=== PATIENT | female | born 1950 | race Caucasian/White ===

== ENCOUNTER → 2021-11-09 04:03 | Outpatient (CLI) | payer MEDICARE, SELFPAY ==
[2021-11-09 06:24] LABS: Microscopic, Urine URINE MICROSCOPIC (MICROSCOPIC)
[2021-11-09 06:43] LABS: Appearance,Urine CLOUDY (Clear); Bilirubin,Urine Negative (Negative); Blood, Urine 1+ (Negative); Color,Urine YELLOW (Yellow); Glucose,Urine (UA) Negative (Negative); Ketones,Urine Negative (Negative); Leukocyte Esterase,Urine 3+ (Negative); Nitrate,Urine Negative (Negative); PH,Urine 6.5 (5.0-8.5); Protein,Urine Negative (Negative); Specific Gravity, Urine <= 1.005 (1.005-1.030); Urobilinogen,Urine 0.2 EU/dl (0.2)
[2021-11-09 06:49] LABS: Creatinine,Urine Random 27 mg/dL (Not Estab.)
[2021-11-09 07:08] LABS: WBC,Urine TNTC #/hpf (0-3)
[2021-11-09 07:09] LABS: Bacteria,Urine 4+ /lpf
== END ==
PROVIDERS: PCP Internal Medicine Adolescent Medicine; Visit Provider Internal Medicine Adolescent Medicine
DX: N39.0 Urinary tract infection, site not specified (principal); B96.29 Other Escherichia coli [E. coli] as the cause of diseases classified elsewhere
CPT/HCPCS: 81001; 82570; 84155; 87086; 87088; 87186

== ENCOUNTER → 2021-11-15 10:15 | Outpatient (POV) | payer MEDICARE, SELFPAY | PROVIDERS: Visit Provider Dermatology | DX: Z00.00 Encounter for general adult medical examination without abnormal findings (principal) ==

== ENCOUNTER → 2021-11-15 11:40 | Outpatient (CLI) | payer MEDICARE, SELFPAY ==
--- NOTE | 2021-11-15 11:47 | XR_ITS ---
FINAL REPORT TECHNIQUE: Bone densitometry calculations of the lumbar spine and right hip and left forearm were obtained. CLINICAL HISTORY: post menopausal, h/o lt hip fx. i did lt forearm in place of hip FINDINGS: DEXA BONE DENSITY AXIAL SKELETON Using L1-4, the bone mineral density of the spine is 0.906 g/cm2, corresponding to T-score of -1.3. Using the right hip, the bone mineral density of the femoral neck is 0.490 g/cm2, corresponding to a T-score of -3.2. Using the left forearm, the bone mineral density of the distal 1/3 is 0.465 g/cm2, corresponding to a T-score of -3.8. NOTE: T-score: Standard deviation compared with peak bone mass of young adult mean. *Following the recommendations of the International Society of Bone Densitometry, classification of hip BMD is based on the lower of two T-scores; total hip or femoral neck. IMPRESSION: Osteoporosis: Lowest T-score is at or below -2.5. This patient's T-score meets the World Health Organization criteria for osteoporosis. Reviewed, Interpreted and Dictated by Bryant Titus III, MD Transcribed by Ashanti Nesbitt Authenticated and [facility]
== END ==
PROVIDERS: PCP Internal Medicine Adolescent Medicine; Visit Provider Internal Medicine
DX: M81.0 Age-related osteoporosis without current pathological fracture (principal)
CPT/HCPCS: 77080

== ENCOUNTER → 2021-12-16 05:36 | Outpatient (CLI) | payer MEDICARE, SELFPAY ==
[2021-12-16 05:51] LABS: Microscopic, Urine URINE MICROSCOPIC (MICROSCOPIC)
[2021-12-16 05:54] LABS: Bilirubin,Urine Negative (Negative); Blood, Urine 1+ (Negative); Color,Urine YELLOW (Yellow); Glucose,Urine (UA) Negative (Negative); Ketones,Urine Negative (Negative); Leukocyte Esterase,Urine 2+ (Negative); Nitrate,Urine POSITIVE (Negative); Protein,Urine Negative (Negative); Specific Gravity, Urine 1.015 (1.005-1.030); Urobilinogen,Urine 0.2 EU/dl (0.2)
[2021-12-16 06:04] LABS: Appearance,Urine Cloudy (Clear)
[2021-12-16 06:29] LABS: Bacteria,Urine 3+ /lpf; WBC,Urine 50-100 #/hpf (0-3)
== END ==
PROVIDERS: PCP Internal Medicine Adolescent Medicine; Visit Provider Internal Medicine Adolescent Medicine
DX: R50.9 Fever, unspecified (principal); N39.0 Urinary tract infection, site not specified; B96.29 Other Escherichia coli [E. coli] as the cause of diseases classified elsewhere
CPT/HCPCS: 81001; 87086; 87088; 87186